=== PATIENT | female | born 1975 | race African-American/Black ===

== ENCOUNTER 2021-12-12 08:20 | Emergency (ER) | payer MEDICAID ==
[~2021-12-12] VITALS: Ht 170.2 cm; Wt 82.0 kg
[2021-12-12] MEDS ORDERED: SODIUM CHLORIDE 0.9% 1,000 ML IV ONE (08:45)
[2021-12-12] MEDS ORDERED: NALOXONE HCL 0.4 MG/ML 1ML VIAL IV ONE (09:45)
[2021-12-12 09:51] LABS: BASOPHILS % 0.7 % (0.0-2.0); EOSINOPHILS % 1.5 % (0.0-5.0); HEMATOCRIT. 41.2 % (36.0-48.0); HEMOGLOBIN. 13.9 g/dL (12.0-16.0); LYMPHOCYTES % 27.6 % (20.0-50.0); MEAN CORPUSCULAR HEMOGLOBIN 32.2 pg (28.0-32.0); MEAN CORPUSCULAR VOLUME 95.2 fL (81.0-99.0); MEAN PLATELET VOLUME 7.2 fl (7.4-10.4); MONOCYTES % 7.6 % (2.0-8.0); NEUTROPHILS % 62.6 % (40.0-76.0); PLATELET 252 x1000/uL (130-400); RED BLOOD CELL COUNT 4.33 mill/uL (4.2-5.4); RED CELL DISTRIBUTION WIDTH 12.5 % (11.6-14.6)
[2021-12-12 10:00] LABS: CHLORIDE 106 mEq/L (98-107)
[2021-12-12 10:04] LABS: HCG SCREEN NEGATIVE
[2021-12-12 10:05] LABS: ETHANOL BLOOD < 10 mg/dL
[2021-12-12 12:12] LABS: CLARITY URINE CLEAR (CLEAR); COLOR URINE YELLOW (YELLOW); KETONES URINE NEGATIVE (NEGATIVE); LEUKOCYTE ESTERASE URINE NEGATIVE (NEGATIVE); NITRITE URINE NEGATIVE (NEGATIVE); OCCULT BLOOD URINE NEGATIVE (NEGATIVE); PH URINE 5.5 (4.5-8.0); PROTEIN URINE NEGATIVE (NEGATIVE); UROBILINOGEN URINE 0.2 E.U./dL (0.2-1.0)
[2021-12-12 12:30] LABS: *BARBITURATES SCREEN URINE NEGATIVE (NEGATIVE); *BENZODIAZEPINES SCREEN URINE NEGATIVE (NEGATIVE); *COCAINE SCREEN URINE NEGATIVE (NEGATIVE); CANNABINOID URINE SCREEN NEGATIVE (NEGATIVE); METHADONE URINE SCREEN NEGATIVE (NEGATIVE); OPIATES URINE SCREEN NEGATIVE (NEGATIVE); PHENCYCLIDINE URINE SCREEN NEGATIVE (NEGATIVE)
[2021-12-12 12:32] LABS: *AMPHETAMINES SCREEN URINE PRESUMTIVE POSITIVE (NEGATIVE)
[2021-12-12 15:58] VITALS: BP 121/77
== END 2021-12-12 16:00 | disposition home or self-care (01) ==
LOC: ER 08:20
DX: G93.40 Encephalopathy, unspecified (principal); F19.10 Other psychoactive substance abuse, uncomplicated; I49.9 Cardiac arrhythmia, unspecified; Z98.890 Other specified postprocedural states
CPT/HCPCS: 36415; 80053; 80305; 80320; 81003; 82962; 84703; 85025; 93005; 96361; 96374; 99285; J2310; J7030; G0480